=== PATIENT | male | born 1980 | race African-American/Black ===

== ENCOUNTER 2016-03-28 12:48 | Emergency (ER) | payer SELFPAY ==
--- NOTE | 2016-03-28 12:53 | ER Document Report ---
ED Medical Screen (RME) - General Stated Complaint: ABSCESS ON NECK Notes: patient is a 35 year old male who p/w abscess of right posterior neck for the past 4 days patient denies h/o MRSA but h/o abscesses prior to this I have greeted and performed a rapid initial assessment of this patient. A comprehensive ED assessment and evaluation of the patient, analysis of test results and completion of the medical decision making process will be conducted by additional ED providers. TRAVEL OUTSIDE OF THE [place] IN LAST 30 DAYS: No - Related Data Allergies/Adverse Reactions: No Known Drug Allergies Allergy (Verified 03/28/16 12:50) Past Medical History Musculoskeltal Medical History: Reports Hx Musculoskeletal Trauma Skin Medical History: Reports Hx Cellulitis Psychiatric Medical History: Reports: Hx Depression Traumatic Medical History: Reports: Hx Traumatic Brain Injury Past Surgical History: Reports: Hx Orthopedic Surgery - right ankle Fx - Immunizations Immunizations up to date: Yes Hx Diphtheria, Pertussis, Tetanus Vaccination: Yes - 2010
[2016-03-28] MEDS ORDERED: LIDOCAINE 1%/EPINEPHRINE INJ 20 ML VIAL INJ ONE (18:29)
[2016-03-28] MEDS ORDERED: OXYCODONE-ACETAMINOPHEN 5-325 MG TABLET PO ONE (18:36)
--- NOTE | 2016-03-28 18:36 | ER Document Report ---
ED General - General Chief Complaint: Abscess Stated Complaint: ABSCESS ON NECK Mode of Arrival: Ambulatory Information source: Patient Notes: Patient is a 35 yo male who presents with abscess to posterior neck that started 4 days ago. He denies any fever, chills, drainage or bleeding from the area. He has history of abscesses but denies hx of MRSA. He did take ibuprofen this morning but that did not help the pain. he has no prior history of HTN, does not take any medication. TRAVEL OUTSIDE OF THE [place] IN LAST 30 DAYS: No - Related Data Allergies/Adverse Reactions: No Known Drug Allergies Allergy (Verified 03/28/16 18:48) Past Medical History - Social History Smoking Status: Current Every Day Smoker Chew tobacco use (# tins/day): Yes Frequency of alcohol use: Occasional Drug Abuse: None Family History: Reviewed & Not Pertinent Patient has suicidal ideation: No Patient has homicidal ideation: No Renal/ Medical History: Denies: Hx Peritoneal Dialysis Musculoskeltal Medical History: Reports Hx Musculoskeletal Trauma Skin Medical History: Reports Hx Cellulitis Psychiatric Medical History: Reports: Hx Depression Traumatic Medical History: Reports: Hx Traumatic Brain Injury Past Surgical History: Reports: Hx Orthopedic Surgery - right ankle Fx - Immunizations Immunizations up to date: Yes Hx Diphtheria, Pertussis, Tetanus Vaccination: Yes - 2010 Review of Systems - Review of Systems Constitutional: See HPI EENT: No symptoms reported Cardiovascular: No symptoms reported Respiratory: No symptoms reported Gastrointestinal: No symptoms reported Genitourinary: No symptoms reported Male Genitourinary: No symptoms reported Musculoskeletal: No symptoms reported Skin: See HPI Hematologic/Lymphatic: No symptoms reported Neurological/Psychological: No symptoms reported Physical Exam - Vital signs Vitals: Temp Pulse Resp BP Pulse Ox 98.3 F 103 H 23 H 188/152 H 93 03/28/16 12:54 03/28/16 12:54 03/28/16 12:54 03/28/16 12:54 03/28/16 12:54 Interpretation: Hypertensive, Tachycardic Notes: most likely secondary to pain, will repeat vital signs - Notes Notes: PHYSICAL EXAM: CONSTITUTIONAL: Alert and oriented, well-appearing and in no acute distress. Morbidly obese. Appears uncomfortable. HENT: Normocephalic, atraumatic. Moist mucous membranes. EYES: Pupils equal round and reactive to light, EOM intact. Sclera anicteric, conjunctiva are normal. No entrapment. NECK: supple without lymphadenopathy. No midline tenderness or paraspinous muscle spasms. No step-offs or deformities. ROM intact. HEART: Regular rate and rhythm without murmurs. LUNGS: CTAB and equal. No wheezes, rales or rhonchi. GI: Normactive bowel sounds. Nontender, non-distended. No organomegaly. no CVAT. BACK: nontender, no paraspinous spasm, 5+/5 strengths, DTRs 2+, SLR -. EXTREMITIES: Normal range of motion, no pitting edema. No cyanosis. Cap Refill < 3 seconds. SKIN: Warm and dry. Normal turgor. No rashes or lesions noted. 4 x2 cm linear fluctuant abscess noted to right posterior neck with surrounding erythema. Course - Re-evaluation Re-evalutation: 03/28/16 18:34 I have consulted with the supervisory physician per [facility] guidelines. Patient seen and examined. 4x2 cm linear fluctant abscess to right posterior neck. Will I&D and pack. Noted elevated BP, will repeat. Patient denies any history and does not take medication for same. 03/28/16 19:47 Incision and drainage completed. Wound cultures pending, packing left in place. Discussed wound care with patient. Advised to return in 2-3 days for wound care/ repacking. Noted to have BP 182/152 in triage, repeat BP showed 157/108 and secondary repeat post-procedure 158/110. Patient denies prior history of HTN. Patient is morbidly obese and therefore I feel this as well as pain is contributing to his elevated blood pressure. Advised patient to follow-up with primary care doctor. Discharged home in stable condition, script for abx given as well as pain medication. Follow-up as directed. Patient in verbal agreement with management and plan. Return precautions given. - Vital Signs Vital signs: Temp Pulse Resp BP Pulse Ox 98.3 F 103 H 23 H 157/108 H 93 03/28/16 12:54 03/28/16 12:54 03/28/16 12:54 03/28/16 18:39 03/28/16 12:54 Procedures - Incision and Drainage Right Posterior Neck Type: Complex Anesthetic type: 1% Lidocaine w/epi mL's of anesthetic: 10 Blade size: 11 I&D procedure: Betadine prep applied Incision Method: Incision made by scalpel Amount/type of drainage: 10 cc's purulent drainage Notes: 03/28/16 19:45 Patient tolerated procedure well. Wound cultures obtained. Appeared to be two loculated areas, approximately 3 cm deep. 03/28/16 19:46 Iodoform packing left in place. Adult Head Front/Back picture: 1 - 3x4 cm linear abscess, 2 loculated areas Discharge - Discharge Clinical Impression: Abscess Hypertension Qualifiers: Hypertension type: essential hypertension Qualified Code(s): I10 - Essential ( primary) hypertension Condition: Stable Disposition: HOME, SELF-CARE Additional Instructions: ABSCESS: You have an abscess (boil). This a pus-forming infection, usually due to staph. Some boils may be left to drain on their own, but most require lancing. From the time the tender lump first appears, it may be three or four days before the abscess is ready to odalis. Local heat and rest help at this stage of treatment. An antibiotic may prevent spread of the infection. Once the abscess is opened, packing may be placed into it. This is done so pus is not sealed inside by premature closure of the cavity. The packing will be removed at your follow-up visit or you may be advised to remove it yourself at home. Sometimes this packing must be replaced a few times during healing. The wound will heal with surprisingly little scar. Depending on the size and location of an abscess, healing can take one to four weeks. You may shower and wash the area around the incision site two or three times a day. Antibiotics may be prescribed, but are usually not necessary after an abscess has been drained. If you develop fever, chills, worsening pain, or increasing swelling in the area, call the doctor or return immediately. POST INCISION AND DRAINAGE: You have had an incision made to allow drainage of an abscess. The incision must remain open so that pus and debris can drain from the wound. If the abscess cavity is large, packing is placed. This keeps the tissues from collapsing and trapping pus inside, while the body shrinks the cavity. The packing may need to be replaced every day or two. The physician will instruct you on the packing. Keep a bulky dressing over the area. Replace it if it becomes saturated with blood or pus. Do not disturb the packing (if present). You may shower and cleanse the area with gentle soap and warm water two or three times a day. Local warmth may be soothing, and may promote faster healing. Return if you develop high fever or chills, or if you note spreading redness, increasing swelling, or increasing tenderness. MRSA CELLULITIS: You have an infection of your skin and underlying soft tissues called cellulitis. This is due to bacteria, which can enter through any break in the skin, or even through an irritated hair follicle. Untreated, cellulitis will usually worsen and may form an abscess which requires draining. Although many bacterial organisms can cause cellulitis and abscess formations, the most likely bacteria is Methicillin-Resistant Staph Aureus, or MRSA for short. Antibiotics are required. Usually, warm packs or warm soaks, and elevation of the infected area are recommended. You should start getting better within 24 to 36 hours. Most infections respond quickly to the right medication. Follow-up care is important, however, to check for abscess (boil) formation, unsuspected foreign body, or resistant infection. If you develop fever, chills, or if the area of infection is becoming rapidly more swollen or painful, call the doctor at once. ORAL NARCOTIC MEDICATION: You have been given a prescription for pain control. This medication is a narcotic. It's best taken with food, as nausea can result if taken on an empty stomach. Don't operate machinery or drive within six hours of taking this medication. Do not combine this medicine with alcohol, or with any medication which can cause sedation (such as cold tablets or sleeping pills) unless you get permission from the physician. Narcotics tend to cause constipation. If possible, drink plenty of fluids and eat a diet high in fiber and fruits. TRIMETHOPRIM-SULFA: You have been given a prescription for trimethoprim-sulfa (TMS, Septra, Bactrim). This is a combination antibiotic of the sulfa class, often used for urinary tract infections, middle ear infections, bronchitis, shigella intestinal infection, and Pneumocystis pneumonia. TMS is usually well-tolerated. Occasional side effects include nausea and decreased appetite. Septra is not recommended for infants less than two months of age. Do not take this medication if you have experienced severe side effects or allergy to sulfa medicine. You should stop this medicine at once and contact your physician if you develop any rash, joint pain, shortness of breath, bruising, or jaundice ( yellow color in the skin), or if you develop any other new or unusual symptoms. FOLLOW-UP CARE: Most simple abscesses will not require a follow up visit. If you had packing placed in the abscess, remove it as instructed by the physician. If you have been referred to a physician for follow-up care, call the physicians office for an appointment as you were instructed or within the next two days. If you experience worsening or a significant change in your symptoms, return to the Emergency Department at any time for re-evaluation. Prescriptions: Oxycodone HCl/Acetaminophen [Percocet 5-325 mg Tablet] 1 tab PO Q6HP PRN #10 tablet PRN Reason: Sulfamethoxazole/Trimethoprim [Bactrim Ds Tablet] 1 tab PO BID 7 Days Forms: Elevated Blood Pressure Referrals: JOSÉ MIGUEL GODWIN MD [ACTIVE STAFF] - Follow up in 3-5 days
[2016-03-28] MEDS ORDERED: HYDROCODONE/ACETAMINOPHEN 5-325 MG 6 TAB/DSPK PO PRN (19:44)
[2016-03-28 19:45] VITALS: BP 158/110
== END 2016-03-28 19:57 | disposition home or self-care (01) ==
LOC: ER 12:48
PROC: 0H94XZZ Drainage of Neck Skin, External Approach (ICD-10-PCS; principal; 2016-03-28)
DX: L02.11 Cutaneous abscess of neck (principal); I10 Essential (primary) hypertension; F17.200 Nicotine dependence, unspecified, uncomplicated; R00.0 Tachycardia, unspecified; E66.01 Morbid (severe) obesity due to excess calories
CPT/HCPCS: 99283; 87070; 87205; 87075; 87077; 10060; J3490

== ENCOUNTER 2016-05-15 07:10 | Emergency (ER) | payer SELFPAY ==
[2016-05-15 07:31] VITALS: BP 140/96
[2016-05-15] MEDS ORDERED: IBUPROFEN 600 MG TABLET PO ONE (08:14)
--- NOTE | 2016-05-15 08:18 | ER Document Report ---
ED Extremity Problem, Lower - General Chief Complaint: Foot Injury Stated Complaint: LEFT FOOT PAIN Mode of Arrival: Ambulatory Information source: Patient TRAVEL OUTSIDE OF THE [place] IN LAST 30 DAYS: No - HPI Patient complains to provider of: Injury Location: Foot Where: Home Quality of pain: Dull Severity: Moderate Context: Stubbed Associated symptoms: Stone a pop, Painful ambulation. denies: Chest pain, Chills, Dizzy, Fever, Hurts to breath, Unable to bear weight Exacerbated by: Movement, Walking Relieved by: Rest Notes: Patient arrives with complaints of left great toe injury and right lateral foot pain. He states that he was walking through his apartment yesterday morning when he stubbed his left great toe on the carpet causing the nail to pull back which then caused him to fall and hit his right foot on a dresser. It hurt a pop in the right foot and now has lateral foot pain. He denies any ankle pain. He denies any posterior leg pain. The left toenail is not actively bleeding but he does notice some oozing of blood occasionally. Tetanus is up-to-date. His biggest complaint is his right lateral foot pain. He denies any fevers. He denies any nausea, vomiting, diarrhea. He denies any other injuries. He denies any other complaints at this moment. - Related Data Allergies/Adverse Reactions: No Known Drug Allergies Allergy (Verified 05/15/16 07:18) Past Medical History - Social History Smoking Status: Unknown if Ever Smoked Family History: Reviewed & Not Pertinent Patient has suicidal ideation: No Patient has homicidal ideation: No Renal/ Medical History: Denies: Hx Peritoneal Dialysis Musculoskeltal Medical History: Reports Hx Musculoskeletal Trauma Skin Medical History: Reports Hx Cellulitis Psychiatric Medical History: Reports: Hx Depression Traumatic Medical History: Reports: Hx Traumatic Brain Injury Past Surgical History: Reports: Hx Orthopedic Surgery - right ankle Fx - Immunizations Immunizations up to date: Yes Hx Diphtheria, Pertussis, Tetanus Vaccination: Yes - 2010 Review of Systems - Review of Systems -: Yes All other systems reviewed and negative Physical Exam - Vital signs Vitals: Temp Pulse Resp BP Pulse Ox 97.8 F 100 18 140/96 H 95 05/15/16 07:28 05/15/16 07:28 05/15/16 07:28 05/15/16 07:28 05/15/16 07:28 - General General appearance: Appears well, Alert - HEENT Head: Normocephalic, Atraumatic Eyes: Normal Pupils: PERRL Nasal: Normal Mucous membranes: Normal Pharynx: Normal - Respiratory Respiratory status: No respiratory distress Breath sounds: Normal - Cardiovascular Rhythm: Regular Heart sounds: Normal auscultation Murmur: No Pulses: Normal: Dorsalis pedis Normal capillary refill: Yes - Extremities Notes: Patient is noted to have some slight oozing from the in and of his left great toenail. He can tell where the toenail had lifted on the end. It is still attached at the base normally. There is no swelling or erythema noted. No active bleeding noted. Tenderness to palpation to the lateral aspect of the right foot. His mainly along the fifth metatarsal. No obvious deformity noted. Slight decreased sensation to palpation of his right pinky toe. Remainder of his foot sensation is normal. There is no tenderness to palpation of the ankle. There is no ligament instability identified. Achilles is intact with a normal Boggs's test. There is no proximal tib-fib tenderness to palpation of the right leg. There is no redness. Skin is intact. Remainder the muscle skull exam is unremarkable. - Neurological Neuro grossly intact: Yes Cognition: Normal Orientation: AAOx4 Erasmo Coma Scale Eye Opening: Spontaneous Erasmo Coma Scale Verbal: Oriented Erasmo Coma Scale Motor: Obeys Commands Mclaughlin Coma Scale Total: 15 Speech: Normal Motor strength normal: LUE, RUE, LLE, RLE - Psychological Associated symptoms: Normal affect, Normal mood - Skin Skin Temperature: Warm Skin Moisture: Dry Skin Color: Normal Course - Re-evaluation Re-evalutation: 05/15/16 08:54 Patient is nontoxic appearing with stable vitals. The patient's left great toenail is currently intact. I offered toenail removal, the patient returned declined at this time. Right foot exam is benign. X-ray shows no acute fractures. The patient will be placed in a postop shoe to be worn as needed for comfort. Discharged home with Voltaren. Follow up if not better in one week, sooner for increased pain, fever, redness, drainage, any further concerns. The patient is noted to have elevated blood pressure during today's emergency department visit. The patient was informed of this finding. The patient was instructed that this may be related to pre-hypertension and requires further evaluation with a primary care provider. The patient has no hypertensive symptoms at this time. The patient's emergency department workup and current diagnosis were explained to the patient and or family. Follow-up instructions were provided. Medications if prescribed were discussed. Instructions for when to return to the emergency department including specific worrisome symptoms were discussed with the patient and/or family. - Vital Signs Vital signs: Temp Pulse Resp BP Pulse Ox 97.8 F 100 18 140/96 H 95 05/15/16 07:28 05/15/16 07:28 05/15/16 07:28 05/15/16 07:28 05/15/16 07:28 - Diagnostic Test Radiology reviewed: Image reviewed, Reports reviewed - Negative right foot Procedures - Additional Procedures right foot Notes: 05/15/16 08:55 Postop shoe applied to the right foot by nursing staff. Joint was well aligned , the patient tolerated the procedure well. Normal neurovascular exam distally. Discharge - Discharge Clinical Impression: Avulsion of toenail of left foot Right foot sprain Qualifiers: Encounter type: initial encounter Qualified Code(s): S93.601A - Unspecified sprain of right foot, initial encounter Condition: Stable Disposition: HOME, SELF-CARE Instructions: Sprain ([facility]), Avulsed Nail ([facility]) Additional Instructions: Take medications as prescribed. Rest, ice, elevate your foot. Wear splint as needed for comfort. Keep your left great toenail clean and dry. Follow-up if your foot is not better in one week, sooner for increased pain, fever, redness, drainage, any further concerns. Your blood pressure was elevated during today's visit. Have this rechecked with your doctor. Prescriptions: Diclofenac Sodium [Voltaren] 75 mg PO BID #20 tablet.dr Forms: Elevated Blood Pressure
== END 2016-05-15 09:28 | disposition home or self-care (01) ==
LOC: ER 07:10
DX: S93.601A Unspecified sprain of right foot, initial encounter (principal); S91.202A Unspecified open wound of left great toe with damage to nail, initial encounter; W18.09XA Striking against other object with subsequent fall, initial encounter; Y92.039 Unspecified place in apartment as the place of occurrence of the external cause; R03.0 Elevated blood-pressure reading, without diagnosis of hypertension; Z87.81 Personal history of (healed) traumatic fracture
CPT/HCPCS: 99283

== ENCOUNTER 2016-12-01 19:02 | Emergency (ER) | payer SELFPAY ==
[2016-12-01] MEDS ORDERED: OXYCODONE-ACETAMINOPHEN 5-325 MG TABLET PO ONE (19:35)
[2016-12-01] MEDS ORDERED: ONDANSETRON 4 MG TAB.RAPDIS PO ONE (19:35)
--- NOTE | 2016-12-01 19:36 | ER Document Report ---
ED Medical Screen (RME) - General Chief Complaint: Abscess Stated Complaint: POSSIBLE ABCESS ON NECK Time Seen by Provider: 12/01/16 19:33 Notes: 36-year-old male patient comes emergency room for an abscess developing the right base of his neck. He had this same area incised and drained 8 months ago. I have greeted and performed a rapid initial assessment of this patient. A comprehensive ED assessment and evaluation of the patient, analysis of test results and completion of the medical decision making process will be conducted by additional ED providers. TRAVEL OUTSIDE OF THE [place] IN LAST 30 DAYS: No - Related Data Allergies/Adverse Reactions: No Known Drug Allergies Allergy (Verified 12/01/16 19:06) Past Medical History - Social History Frequency of alcohol use: Rare Drug Abuse: None Renal/ Medical History: Denies: Hx Peritoneal Dialysis Musculoskeltal Medical History: Reports Hx Musculoskeletal Trauma Skin Medical History: Reports Hx Cellulitis Psychiatric Medical History: Reports: Hx Depression Traumatic Medical History: Reports: Hx Traumatic Brain Injury Past Surgical History: Reports: Hx Orthopedic Surgery - right ankle Fx - Immunizations Immunizations up to date: Yes Hx Diphtheria, Pertussis, Tetanus Vaccination: Yes - 2010 Physical Exam - Vital signs Vitals: Temp Pulse Resp BP Pulse Ox 98.8 F 105 H 18 152/112 H 96 12/01/16 19:07 12/01/16 19:07 12/01/16 19:07 12/01/16 19:07 12/01/16 19:07 Course - Vital Signs Vital signs: Temp Pulse Resp BP Pulse Ox 98.8 F 105 H 18 152/112 H 96 12/01/16 19:07 12/01/16 19:07 12/01/16 19:07 12/01/16 19:07 12/01/16 19:07
[2016-12-01] MEDS ORDERED: SULFAMETHOXAZOLE/TRIMETHOPRIM 800-160 MG TABLET PO ONE (20:02)
[2016-12-01] MEDS ORDERED: LIDOCAINE 1%/EPINEPHRINE INJ 20 ML VIAL INJ ONE (20:03)
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
[2016-12-01] MEDS ORDERED: HYDROCODONE/ACETAMINOPHEN 5-325 MG 6 TAB/DSPK PO PRN (20:43)
[2016-12-01 20:54] VITALS: BP 145/95
== END 2016-12-01 20:54 | disposition home or self-care (01) ==
LOC: ER 19:02
PROC: 0H96XZZ Drainage of Back Skin, External Approach (ICD-10-PCS; principal; 2016-12-01)
DX: L02.11 Cutaneous abscess of neck (principal); L02.212 Cutaneous abscess of back [any part, except buttock and flank]; F17.200 Nicotine dependence, unspecified, uncomplicated
CPT/HCPCS: 99283; 10060; A6266; S0119; J3490

== ENCOUNTER 2017-01-31 18:57 | Emergency (ER) | payer OTHER ==
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
[2017-01-31 19:53] LABS: ABSOLUTE BASOPHILS # (AUTO) 0.1 10^3/uL (0.0-0.2); ABSOLUTE EOSINOPHILS # (AUTO) 0.1 10^3/uL (0.0-0.6); ABSOLUTE LYMPHOCYTES (AUTO) 1.3 10^3/uL (0.5-4.7); ABSOLUTE MONOCYTES (AUTO) 0.8 10^3/uL (0.1-1.4); ABSOLUTE NEUT (AUTO) 7.3 10^3/uL (1.7-8.2); BASOPHILS % (AUTO) 0.7 % (0-2); EOSINOPHILS % (AUTO) 0.9 % (0-6); HEMATOCRIT 45.6 % (37.9-51.0); HGB HCT DIFFERENCE -0.6; LYMPHOCYTES % (AUTO) 13.8 % (13-45); MEAN CORPUSCULAR HEMOGLOBIN 28.4 pg (27.0-33.4); MEAN CORPUSCULAR VOLUME 86 fl (80-97); MONOCYTES % (AUTO) 8.5 % (3-13); RED BLOOD COUNT 5.29 10^6/uL (4.35-5.55); SEGMENTED NEUTROPHILS % (AUTO) 76.1 % (42-78); WHITE BLOOD COUNT 9.6 10^3/uL (4.0-10.5)
[2017-01-31 20:02] LABS: ALANINE AMINOTRANSFERASE 29 U/L (21-72); ALBUMIN 4.1 g/dL (3.5-5.0); ALKALINE PHOSPHATASE 92 U/L (38-126); ANION GAP 12 (5-19); ASPARTATE AMINO TRANSFERASE 19 U/L (17-59); BILIRUBIN,DIRECT 0.2 mg/dL (0.0-0.4); BILIRUBIN,TOTAL 0.6 mg/dL (0.2-1.3); BLOOD UREA NITROGEN 10 mg/dL (7-20); CALCIUM 9.6 mg/dL (8.4-10.2); CARBON DIOXIDE 28 mmol/L (22-30); CHLORIDE 101 mmol/L (98-107); CREATININE RESULT 1.18 mg/dL (0.52-1.25); GLUCOSE 135 mg/dL (75-110); POTASSIUM 3.9 mmol/L (3.6-5.0)
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
[2017-01-31 21:16] VITALS: BP 152/118
== END 2017-01-31 21:16 | disposition home or self-care (01) ==
LOC: ER 18:57
DX: M89.8X1 Other specified disorders of bone, shoulder (principal); R07.9 Chest pain, unspecified; M25.512 Pain in left shoulder; V49.40XD Driver injured in collision with unspecified motor vehicles in traffic accident, subsequent encounter; F17.200 Nicotine dependence, unspecified, uncomplicated
CPT/HCPCS: 36415; 70450; 71020; 72110; 72125; 80053; 85025; 85610; 99284